=== PATIENT | male | born 1975 | race African-American/Black ===

== ENCOUNTER 2016-10-06 22:41 | Emergency (ER) | payer BC ==
[~2016-10-06] VITALS: Ht 167.6 cm; Wt 74.0 kg
[2016-10-06 22:42] VITALS: BP 114/71; PULSE 83; RESP 16; TEMP 97.7; O2SAT 98
[2016-10-06] MEDS ORDERED: AMOX500T PO (23:08)
[2016-10-06] MEDS ORDERED: DICL50TA3 PO (23:08)
--- NOTE | 2016-10-06 23:11 | PD ---
HPI Chief Complaint: Oral / Dental Pain or Problem Time Seen by Provider: 23:09 Travel History International Travel<30 days: No Contact w/Intl Traveler<30days: No Traveled to known affect area: No History of Present Illness HPI 41-year-old white male presents to emergency Department with complaints of right lower dental pain over the last 24 hours. He denies any fever chills. No difficulty swallowing. No shortness breath or wheezing. It is moderate. Was chewing. PFSH Past Medical History Medical History: Denies Significant Hx Tetanus Vaccination: < 5 Years Past Surgical History Surgical History: No Previous Surgery Social History Alcohol Use: Yes Tobacco Use: Yes Allergies-Medications (Allergen,Severity, Reaction): Coded Allergies: No Known Allergies (Unverified , 10/06/16) Review of Systems Except as stated in HPI: all other systems reviewed are Neg Physical Exam Narrative GENERAL: Well-developed, well-nourished in no acute distress. Nontoxic appearing. HEAD: Normocephalic, atraumatic. EYES: Pupils equal round and reactive. Extraocular motions intact. No scleral icterus. No injection or drainage. ENT: TMs clear without erythema. The external auditory canals clear. Nose: clear . Posterior pharynx is pink and moist. No tonsillar edema or exudate. Uvula midline. Airway patent. Patient points to his right lower mandible a source of his pain. He has a large amount of plaque and calculus but I see no large dental carry. NECK: Trachea midline.Supple, nontender, moves head freely. No central bony tenderness or spasm. CARDIOVASCULAR: Regular rate and rhythm without murmurs, gallops, or rubs. RESPIRATORY: Clear to auscultation. Breath sounds equal bilaterally. No wheezes , rales, or rhonchi. GASTROINTESTINAL: Abdomen soft, non-tender, nondistended. No hepato-splenomegaly , or palpable masses. No guarding. EXTREMITIES: No clubbing, cyanosis, or edema. No joint tenderness, effusion, or edema noted. BACK: Nontender without deformity or crepitance. No flank tenderness. Data Data Last Documented VS Vital Signs Date Time Temp Pulse Resp B/P Pulse Ox O2 Delivery O2 Flow Rate FiO2 10/06/16 22:42 97.7 83 16 114/71 98 Room Air Orders Amoxicillin (Trimox) (10/06/16 23:15) Acetamin-Hydrocod 325-5 Mg (Crum 5-325 (10/06/16 23:15) MDM Medical Decision Making Medical Screen Exam Complete: Yes Emergency Medical Condition: Yes Medical Record Reviewed: Yes Differential Diagnosis MDM: Moderate Differential diagnoses: Dental abscess, dental caries, osteitis, cellulitis Narrative Course Patient is given Amoxil 500 and Lortab 5 a grams by mouth. This is dentalgia Diagnosis Primary Impression: Dentalgia Patient Instructions: Narcotic given in the ED, General Instructions Additional Instructions: Rest. Saltwater gargles. [employer] oil on cotton balls. Amoxicillin and diclofenac. follow-up with a dentist as soon as possible. And return to the ER if any problems. Med/Other Pt SpecificInfo: Prescription(s) given Scripts Diclofenac Sodium DR 50 Mg Tabdr50 Mg PO TID #21 TAB Prov:Jani Deng MD 10/06/16 Amoxicillin 500 Mg Tab1,000 Mg PO BID #40 TAB Prov:Jani Deng MD 10/06/16 Disposition: 01 DISCHARGE HOME Condition: Stable Jonathan Vaz Oct 06, 2016 23:10
[2016-10-06] MEDS ORDERED: ACETAMINOPHEN/HYDROcodone 325 MG/5 MG TAB PO ONE (23:15)
[2016-10-06] MEDS ORDERED: AMOXICILLIN (TRIHYDRATE) 500 MG CAP PO ONE (23:15)
== END 2016-10-06 23:39 | disposition home or self-care (01) ==
LOC: NEPK 22:41
DX: K08.89 Other specified disorders of teeth and supporting structures (principal); Z72.0 Tobacco use
CPT/HCPCS: 99282